=== PATIENT | male | born 1980 | race African-American/Black ===

== ENCOUNTER 2018-07-17 06:56 | Day surgery (SDC) | payer BC ==
[2018-07-14 11:37] VITALS: BMI 35.6
[2018-07-17] MEDS ORDERED: oxyCODONE HCL 5 MG TABLET PO PRN ×2 (08:23)
[2018-07-17] MEDS ORDERED: ONDANSETRON 4 MG/2 ML VIAL IVPUSH PRN (08:23)
[2018-07-17] MEDS ORDERED: LIDOCAINE HCL 2% (50ML VIAL) INF ONE (09:21)
[2018-07-17] MEDS ORDERED: BUPIVACAINE HCL/PF 0.25% (2.5MG/ML) 10 ML VIAL IJ ONE (09:22)
[2018-07-17 09:50] VITALS: TEMP 98.7
[2018-07-17 10:24] VITALS: BP 143/97; PULSE 58
--- NOTE | 2018-07-18 13:12 | OP ---
DATE OF OPERATION: 07/17/2018 SURGEON: Anton Chang MD ASSISSTANT: THANG French PREOPERATIVE DIAGNOSIS: Right Achilles tendinitis with partial tear. POSTOPERATIVE DIAGNOSIS: Right Achilles tendinitis with partial tear. PROCEDURE: Right Achilles debridement using a Tenex debridement device through an open percutaneous procedure. FINDINGS: Thickened scar tissue noted on ultrasound palpation using the Tenex device. DESCRIPTION OF PROCEDURE: Informed consent was obtained. The patient came to the operating room, where the right lower extremity was prepped and draped in a sterile fashion. A tourniquet was placed on the upper leg, but not inflated. A 1-cm incision was made proximal to the site of maximal tenderness along the distal third of the Achilles tendon and along the insertion. Ultrasound was placed on the Achilles tendon and the damaged tissue was identified. The Tenex debriding device was placed into the tendon and the fibers were debrided. They were noted to be maximally injured. This allowed for debridement with irrigation through the Tenex system. Energy was placed through the distal portion of the needle burning away the damaged tissue, and irrigation was placed through the needle itself where it was connected to saline. After debridement of the tissue, the stretching of the tendon provided stretching of the damaged tissues which were debrided as well under ultrasound guidance. Wound was irrigated with copious amounts of irrigation. It was closed with 4-0 nylon. Sterile dressing was placed. The patient transferred to recovery without complications. The PA listed above was present and assisted at surgery. Their presence was absolutely medically necessary for the completion of the procedure. They helped hold the arthroscopy, pass instruments (and implants when indicated) and the procedure could not have been completed without their assistance. ANTON CHANG M.D. [id number]
== END 2018-07-17 10:27 | disposition home or self-care (01) ==
LOC: FASU 06:56
PROVIDERS: ATTEND Orthopaedic Surgery
PROC: 0LBN0ZZ Excision of Right Lower Leg Tendon, Open Approach (ICD-10-PCS; principal; 2018-07-17 09:21)
DX: M76.61 Achilles tendinitis, right leg (principal); S86.011A Strain of right Achilles tendon, initial encounter; X58.XXXA Exposure to other specified factors, initial encounter; Y93.9 Activity, unspecified; Y92.9 Unspecified place or not applicable
CPT/HCPCS: 82962